=== PATIENT | female | born 2000 | race Caucasian/White ===

== ENCOUNTER 2019-04-16 18:10 | Emergency (ER) | payer MEDICAID ==
[~2019-04-16] VITALS: Ht 157.5 cm; Wt 64.0 kg
[2019-04-16 18:17] VITALS: Ht 157.5 cm; Wt 64.0 kg
[2019-04-16 20:58] VITALS: BP 102/70
== END 2019-04-16 20:58 | disposition home or self-care (01) ==
LOC: ED 18:10
DX: S16.1XXA Strain of muscle, fascia and tendon at neck level, initial encounter (principal); V49.49XA Driver injured in collision with other motor vehicles in traffic accident, initial encounter; Y93.I9 Activity, other involving external motion; Y92.413 State road as the place of occurrence of the external cause; Y99.8 Other external cause status